=== PATIENT | male | born 1965 | race Caucasian/White ===

== ENCOUNTER 2023-07-02 11:17 | Day surgery (SDC) | payer BC ==
[2023-07-02] MEDS ORDERED: LIDOCAINE HCL 2% 100 MG/5 ML IJ ONE (11:18)
[2023-07-02] MEDS ORDERED: Depo-Medrol 40 MG/ML IM ONE (11:18)
[2023-07-02] MEDS ORDERED: DIPRIVAN 200 MG/20 ML IV ONE (13:00)
[2023-07-02] MEDS ORDERED: Lactated Ringers 1,000 ML IV ONE (13:28)
--- NOTE | 2023-07-02 14:45 | XRAY ---
Indication: Bilateral L4-S1 MBB. Intraoperative fluoroscopy provided for 28 seconds. 2 digital spot images submitted for interpretation demonstrates posterior needle tips projecting over the expected left and right L4-S1 nerve roots. Correlate with intraoperative findings/report.
--- NOTE | 2023-07-02 15:03 | XRAY ---
28 seconds of fluoroscopy was used in surgery for a bilateral L4-S1 MBB.
== END 2023-07-02 13:35 | disposition home or self-care (01) ==
LOC: SDC-PAIN 11:17
PROVIDERS: ATTEND Psychiatry & Neurology Pain Medicine
DX: M47.816 Spondylosis without myelopathy or radiculopathy, lumbar region (principal); Z79.899 Other long term (current) drug therapy
CPT/HCPCS: 64493; 64494; 72020; 77002; J1030; J2704

== ENCOUNTER 2023-07-23 14:10 | Day surgery (SDC) | payer BC ==
[2023-07-23] MEDS ORDERED: Depo-Medrol 40 MG/ML IM ONE (14:11)
[2023-07-23] MEDS ORDERED: BUPIVACAINE 0.5% VIAL IJ ONE (14:11)
[2023-07-23] MEDS ORDERED: Reglan 10 MG/2 ML ONE (15:50)
[2023-07-23] MEDS ORDERED: Zofran 4 MG/2 ML VIAL ONE (15:50)
[2023-07-23] MEDS ORDERED: Versed 2 MG/2 ML Injection ONE (16:15)
[2023-07-23] MEDS ORDERED: DIPRIVAN 200 MG/20 ML IV ONE (17:20)
[2023-07-23] MEDS ORDERED: Lactated Ringers 1,000 ML IV ONE (18:09)
--- NOTE | 2023-07-24 08:38 | XRAY ---
Indication: Bilateral L4-S1 MBB. Intraoperative fluoroscopy provided for 31 seconds. Single digital spot image submitted for interpretation demonstrates posterior needle tips projecting over the expected left and right L4-S1 nerve roots. Correlate with intraoperative findings/report.
--- NOTE | 2023-07-24 12:39 | XRAY ---
31 seconds of fluoroscopy was used in surgery for a bilateral L4-S1 MBB.
== END 2023-07-23 17:50 | disposition home or self-care (01) ==
LOC: SDC-PAIN 14:10
PROVIDERS: ATTEND Psychiatry & Neurology Pain Medicine
DX: M47.816 Spondylosis without myelopathy or radiculopathy, lumbar region (principal)
CPT/HCPCS: 63663; 64493; 64494; 72020; 77002; J1030; J2250; J2405; J2704

== ENCOUNTER 2023-08-06 09:22 | Day surgery (SDC) | payer BC ==
[2023-08-06] MEDS ORDERED: BUPIVACAINE 0.5% VIAL IJ ONE (09:23)
[2023-08-06] MEDS ORDERED: LIDOCAINE HCL 1% 50 MG/5 ML VL PF IJ ONE (09:23)
[2023-08-06] MEDS ORDERED: Depo-Medrol 40 MG/ML IM ONE (09:23)
[2023-08-06] MEDS ORDERED: Pepcid 20 MG VIAL IV ONE (11:25)
[2023-08-06] MEDS ORDERED: Reglan 10 MG/2 ML ONE (11:26)
[2023-08-06] MEDS ORDERED: Versed 2 MG/2 ML Injection ONE (11:26)
[2023-08-06] MEDS ORDERED: DIPRIVAN 200 MG/20 ML IV ONE (12:27)
--- NOTE | 2023-08-06 13:22 | XRAY ---
Indication: Left L4-S1 RFA. Intraoperative fluoroscopy provided for 32 seconds. 3 digital spot images submitted for interpretation demonstrates posterior needle tips projecting over the expected left L4-S1 nerve roots. Correlate with intraoperative findings/report.
--- NOTE | 2023-08-06 13:31 | XRAY ---
32 seconds of fluoroscopy was used in surgery for a left L4-S1 RFA.
== END 2023-08-06 13:30 | disposition home or self-care (01) ==
LOC: SDC-PAIN 09:22
PROVIDERS: ATTEND Psychiatry & Neurology Pain Medicine
DX: M47.816 Spondylosis without myelopathy or radiculopathy, lumbar region (principal); Z79.899 Other long term (current) drug therapy
CPT/HCPCS: 64635; 64636; 72100; 77002; J1030; J2001; J2250; J2704

== ENCOUNTER 2023-08-13 14:11 | Day surgery (SDC) | payer BC ==
[2023-08-13] MEDS ORDERED: XYLOCAINE-MPF 1% 5ML SDV IJ ONE (14:12)
[2023-08-13] MEDS ORDERED: BUPIVACAINE 0.5% VIAL IJ ONE (14:12)
[2023-08-13] MEDS ORDERED: Depo-Medrol 40 MG/ML IM ONE (14:12)
[2023-08-13] MEDS ORDERED: Reglan 10 MG/2 ML ONE (14:42)
[2023-08-13] MEDS ORDERED: Pepcid 20 MG VIAL IV ONE ×3 (14:42→14:49)
[2023-08-13] MEDS ORDERED: Versed 2 MG/2 ML Injection ONE (14:42)
[2023-08-13] MEDS ORDERED: DIPRIVAN 200 MG/20 ML IV ONE ×3 (16:04→16:31)
[2023-08-13] MEDS ORDERED: Xylocaine-Mpf 2% 5 Ml Vial ONE (16:30)
[2023-08-13] MEDS ORDERED: Lactated Ringers 1,000 ML IV ONE (17:11)
--- NOTE | 2023-08-13 17:15 | XRAY ---
Indication: Right L4-S1 RFA. Intraoperative fluoroscopy provided for 19 seconds. 7 digital spot images submitted for interpretation demonstrates posterior needle tips projecting over the right L4-S1 nerve roots. Correlate with intraoperative findings/report.
--- NOTE | 2023-08-13 17:42 | XRAY ---
19 seconds of fluoroscopy was used in surgery for a right L4-S1 RFA.
== END 2023-08-13 16:40 | disposition home or self-care (01) ==
LOC: SDC-PAIN 14:11
PROVIDERS: ATTEND Psychiatry & Neurology Pain Medicine
DX: M47.816 Spondylosis without myelopathy or radiculopathy, lumbar region (principal)
CPT/HCPCS: 64635; 64636; 72100; 77002; J1030; J2250; J2704

== ENCOUNTER 2024-05-06 16:07 | Day surgery (SDC) | payer BC ==
[2024-05-06] MEDS ORDERED: BUPIVACAINE 0.5% VIAL IJ ONE (16:08)
[2024-05-06] MEDS ORDERED: Depo-Medrol 40 MG/ML IM ONE (16:08)
[2024-05-06] MEDS ORDERED: LIDOCAINE HCL 1% 50 MG/5 ML VL PF IJ ONE (16:08)
--- NOTE | 2024-05-07 09:36 | XRAY ---
Indication: Left shoulder and subacromial bursa injection. Intraoperative fluoroscopy provided for 16 seconds. 2 digital spot images submitted for interpretation demonstrates needle tip projecting over left glenohumeral joint superiorly. Second needle tip subcarinal. Small amount of contrast injected for needle tip placement. Correlate with intraoperative findings/report.
--- NOTE | 2024-05-07 10:37 | XRAY ---
16 seconds of fluoroscopy were used in surgery for a left intra-articular shoulder and left subacromial bursa injection.
== END 2024-05-06 17:18 ==
LOC: SDC-PAIN 16:07
PROVIDERS: ATTEND Psychiatry & Neurology Pain Medicine
DX: M19.012 Primary osteoarthritis, left shoulder (principal); M75.52 Bursitis of left shoulder
CPT/HCPCS: 20610; 73030; 77002; J2001; Q9966

== ENCOUNTER 2025-04-27 08:14 | Day surgery (SDC) | payer MEDICARE ==
[2025-04-27] MEDS ORDERED: XYLOCAINE 2% HCL 20 ML MDV IJ ONE (08:15)
[2025-04-27] MEDS ORDERED: propofoL IV ONE (10:08)
[2025-04-27] MEDS ORDERED: Lactated Ringers 1,000 ML IV ONE (10:59)
--- NOTE | 2025-04-27 11:33 | XRAY ---
Indication: Left C3-C5 MBB. Intraoperative fluoroscopy provided for 13 seconds. 2 digital spot image submitted for interpretation demonstrates posterior needle tips projecting over expected left C3-C5 nerve roots. Correlate with intraoperative findings/report.
--- NOTE | 2025-04-27 11:48 | XRAY ---
13 seconds of fluoroscopy was used in surgery for a left C3-C5 MBB.
== END 2025-04-27 10:51 | disposition home or self-care (01) ==
LOC: SDC-PAIN 08:14
PROVIDERS: ATTEND Psychiatry & Neurology Pain Medicine
DX: M47.812 Spondylosis without myelopathy or radiculopathy, cervical region (principal)

== ENCOUNTER 2025-06-22 13:42 | Day surgery (SDC) | payer MEDICARE ==
[2025-06-22] MEDS ORDERED: LIDOCAINE HCL 1% 50 MG/5 ML VL IJ ONE (13:43)
[2025-06-22] MEDS ORDERED: BUPIVACAINE 0.5% VIAL IJ ONE (13:43)
[2025-06-22] MEDS ORDERED: propofoL IV ONE (15:48)
--- NOTE | 2025-06-22 16:50 | XRAY ---
Indication: Left C3-C5 RFA. Intraoperative fluoroscopy provided for 32 seconds. 3 digital spot image submitted for interpretation demonstrates posterior needle tips projecting over expected left C3-C5 nerve roots. Correlate with intraoperative findings/report.
[2025-06-22] MEDS ORDERED: Lactated Ringers 1,000 ML IV ONE (17:54)
--- NOTE | 2025-06-22 19:12 | XRAY ---
32 seconds of fluoroscopy were used in surgery for a left C3-C5 RFA.
== END 2025-06-22 16:33 | disposition home or self-care (01) ==
LOC: SDC-PAIN 13:42
PROVIDERS: ATTEND Psychiatry & Neurology Pain Medicine
DX: M47.812 Spondylosis without myelopathy or radiculopathy, cervical region (principal)